=== PATIENT | female | born 1985 | race Caucasian/White ===

== ENCOUNTER 2018-02-12 13:28 | Emergency (ER) | payer OTHER ==
[~2018-02-12] VITALS: Ht 170.2 cm; Wt 107.3 kg
[2018-02-12 13:32] VITALS: BP 133/87; Ht 170.2 cm; Wt 107.3 kg
[2018-02-12 14:14] LABS: BASOPHILS 0.2 % (0-2); EOSINOPHILS 0.1 % (0-7); HEMATOCRIT 45.1 % (36.0-48.0); HEMOGLOBIN 15.7 g/dL (12-16); IMMATURE GRANULOCYTES 0.4 % (0-5); LYMPHOCYTES 10.3 % (15-50); MCH 29.7 pg (26.0-34.0); MCHC 34.8 g/dL (31.0-37.0); MCV 85.4 fL (80.0-100.0); MEAN PLATELET VOLUME 10.3 fL (7.4-10.4); MONOCYTES 4.9 % (2-11); NEUTROPHILS 84.1 % (40-80); PLATELET COUNT 305 10x3/uL (130-400); RBC 5.28 10x6/uL (4.00-5.40); RDW 13.9 % (11.5-14.5)
[2018-02-12 14:41] LABS: ALBUMIN 3.7 g/dL (3.4-5.0); ALKALINE PHOSPHATASE 84 U/L (46-116); ALT (SGPT) 50 U/L (10-68); BILIRUBIN - TOTAL 1.63 mg/dL (0.2-1.3); CALC OSMOLALITY 274 mosm/kg (275-300); CALCIUM 9.3 mg/dL (8.5-10.1); CHLORIDE - SERUM 103 mmol/L (98-107); CREATININE - SERUM 0.9 mg/dL (0.6-1.3); GLUCOSE 124 mg/dL (74-106); POTASSIUM - SERUM 3.6 mmol/L (3.5-5.1); PROTEIN - SERUM 7.2 g/dL (6.4-8.2); SODIUM 138 mmol/L (136-145); UREA NITROGEN 7 mg/dL (7-18); eGFR NON AFRICAN AMERICAN 77 mL/min (90-120)
[2018-02-12 14:45] LABS: AMYLASE - SERUM 42 U/L (25-115); LIPASE 120 U/L (73-393)
[2018-02-12 14:53] LABS: TROPONIN-I < 0.017 ng/mL (0.000-0.060)
[2018-02-12 16:14] LABS: APPEARANCE HAZY (CLEAR); BILIRUBIN NEGATIVE (NEGATIVE); COLOR AMBER (YELLOW); GLUCOSE NEGATIVE (NEGATIVE); KETONE LARGE mg/dL (NEGATIVE); NITRITE NEGATIVE (NEGATIVE); PROTEIN NEGATIVE (NEGATIVE); SPECIFIC GRAVITY 1.005 (1.005-1.020); UROBILINOGEN NORMAL (NORMAL)
[2018-02-12 16:18] LABS: RED CELLS - URINE 0-5 /hpf (0-5); WHITE CELLS - URINE 0-5 /hpf (0-5)
[2018-02-12 16:20] LABS: BACTERIA MODERATE /hpf (NONE SEEN)
[2018-02-12 16:21] LABS: MUCUS <1+ /lpf (NONE SEEN)
[2018-02-12 16:23] LABS: HCG URINE NEGATIVE (NEGATIVE)
[2018-02-12] MEDS ORDERED: PHENERGAN25 MG RC (17:32)
== END 2018-02-12 17:55 | disposition home or self-care (01) ==
LOC: D.ER 13:28
PROVIDERS: Family Medicine
DX: R11.2 Nausea with vomiting, unspecified (principal); R10.9 Unspecified abdominal pain; R19.7 Diarrhea, unspecified; F17.200 Nicotine dependence, unspecified, uncomplicated

== ENCOUNTER → 2018-02-24 11:59 | Outpatient (CLI) | payer OTHER ==
[2018-02-12 13:32] VITALS: BMI 37.0
[~2018-02-24 11:59] MED LIST: PHENERGAN25 MG RC
== END | disposition home or self-care (01) ==
LOC: D.NM 11:59
DX: R10.13 Epigastric pain (principal); R11.2 Nausea with vomiting, unspecified

== ENCOUNTER 2018-05-03 21:49 | Emergency (ER) | payer OTHER ==
[~2018-05-03] VITALS: Ht 170.2 cm; Wt 100.0 kg
[2018-05-03 21:55] VITALS: Ht 170.2 cm; Wt 100.0 kg
[2018-05-03 22:18] LABS: BASOPHILS 0.1 % (0-2); EOSINOPHILS 0 % (0-7); HEMATOCRIT 53.1 % (36.0-48.0); HEMOGLOBIN 19.4 g/dL (12-16); IMMATURE GRANULOCYTES 0.6 % (0-5); LYMPHOCYTES 13.3 % (15-50); MCH 30.9 pg (26.0-34.0); MCHC 36.5 g/dL (31.0-37.0); MCV 84.7 fL (80.0-100.0); MEAN PLATELET VOLUME 10.8 fL (7.4-10.4); MONOCYTES 12.1 % (2-11); NEUTROPHILS 73.9 % (40-80); PLATELET COUNT 338 10x3/uL (130-400); RBC 6.27 10x6/uL (4.00-5.40); RDW 13.3 % (11.5-14.5); WBC 18.1 10x3/uL (4.8-10.8)
[2018-05-03 22:26] LABS: ALBUMIN 4.8 g/dL (3.4-5.0); BILIRUBIN - TOTAL 2.74 mg/dL (0.2-1.3); CALCIUM 10.2 mg/dL (8.5-10.1); CARBON DIOXIDE 27.7 mmol/L (21.0-32.0); CREATININE - SERUM 2.3 mg/dL (0.6-1.3); POTASSIUM - SERUM 3.7 mmol/L (3.5-5.1); PROTEIN - SERUM 9.8 g/dL (6.4-8.2)
[2018-05-04 01:45] VITALS: BP 120/71
[2018-05-04] MEDS ORDERED: FLAGYL500 MG PO (01:58)
[2018-05-04] MEDS ORDERED: CIPRO500 MG PO (01:58)
[2018-05-04] MEDS ORDERED: IMODIUM2 MG PO (01:58)
[2018-05-04] MEDS ORDERED: ZOFRAN ODT4 MG/UDTAB PO (01:58)
== END 2018-05-04 01:45 | disposition home or self-care (01) ==
LOC: D.ER 21:49
PROVIDERS: Emergency Medicine
DX: K52.9 Noninfective gastroenteritis and colitis, unspecified (principal); F17.200 Nicotine dependence, unspecified, uncomplicated

== ENCOUNTER 2018-05-04 21:19 | Emergency (ER) | payer OTHER ==
[2018-05-03 21:55] VITALS: BMI 34.5
[~2018-05-04 21:19] MED LIST changes: +CIPRO500 MG PO; +FLAGYL500 MG PO; +IMODIUM2 MG PO; +ZOFRAN ODT4 MG/UDTAB PO
== END 2018-05-04 22:01 | disposition left against medical advice (07) ==
LOC: D.ER 21:19
DX: K52.9 Noninfective gastroenteritis and colitis, unspecified (principal); F17.200 Nicotine dependence, unspecified, uncomplicated